=== PATIENT | female | born 1960 | race African-American/Black ===

== ENCOUNTER 2021-09-27 14:46 | Outpatient (REF) | payer MEDICAID, SELFPAY ==
[2021-09-27 15:27] LABS: Anion Gap 11 (12-20); Blood Urea Nitrogen 8 mg/dL (9-16); Carbon Dioxide 29 mmol/L (22-29); Chloride 103 mmol/L (96-108); Estimated Glomerular Filt Rate > 60; Glucose Random 82 mg/dL (60-115); Potassium 3.3 mmol/L (3.3-5.1); Sodium 140 mmol/L (135-145)
[2021-09-27 15:57] LABS: Vitamin B12 388 pg/mL (200-900)
[2021-09-28 21:25] LABS: Lyme Abs Screen <0.90 index
[2021-10-01 09:42] LABS: Treponema pallidum Ab FTA ABS Nonreactive (Nonreactive)
== END 2021-09-27 14:47 | disposition home or self-care (01) ==
LOC: HO.LAB 14:46
PROVIDERS: PCP Student in an Organized Health Care Education/Training Program; Visit Provider Psychiatry & Neurology Neurology
DX: G30.9 Alzheimer's disease, unspecified (principal)
CPT/HCPCS: 36415; 80048; 82607; 86617; 86618; 86780

== ENCOUNTER 2021-10-25 08:59 | Outpatient (REF) | payer MEDICAID, SELFPAY ==
--- NOTE | ~2021-10-25 | MR_ITS ---
EXAMINATION: MR BRAIN WITHOUT CONTRAST CLINICAL INFORMATION: Tingling of left 1st digit. Short-term memory loss. COMPARISON: None. TECHNIQUE: Multiplanar, multisequence imaging of the brain was performed without contrast. Limited study with motion artifacts. FINDINGS: No diffusion abnormalities are identified to suggest an acute infarct. No evidence of hydrocephalus. No mass effect or midline shift is seen. Scattered mild white matter signal changes may be due to chronic microangiopathy. There is moderate disproportionate volume loss in the temporal lobes, specifically involving the anteroinferior portions of the temporal lobes. No extra-axial fluid collections are seen. There is a chronic infarct in the superolateral left cerebellar hemisphere. The brainstem is normal. Incidental empty sella noted. The gradient refocused acquisition demonstrates no pathologic magnetic susceptibility artifact to indicate underlying acute or chronic blood products. The craniovertebral junction, marrow signal, and midline structures are normal. The major intracranial flow voids at the level of the [place] of [place] are preserved. The dural venous sinus flow voids are maintained. There is a [id number] amount of fluid in the dependent left mastoid air cells. Iwsv-os-muoyvsio ethmoid sinus mucosal thickening noted. MR/MR head/brain wo con IMPRESSION: Slightly limited examination with motion artifacts. No acute intracranial process. Moderate volume loss in the anteroinferior temporal lobes bilaterally. Very mild chronic white matter microangiopathy. 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
== END 2021-10-25 09:00 | disposition home or self-care (01) ==
LOC: HO.MRI 08:59
PROVIDERS: Visit Provider Psychiatry & Neurology Neurology
DX: G30.9 Alzheimer's disease, unspecified (principal)
CPT/HCPCS: 70551

== ENCOUNTER 2023-08-29 10:13 | Outpatient (REF) | payer MEDICAID, SELFPAY ==
[2023-08-29 14:52] LABS: Anion Gap 11 (12-20); Blood Urea Nitrogen 8 mg/dL (9-16); Calcium 8.1 mg/dL (8.4-10.2); Carbon Dioxide 24 mmol/L (22-29); Chloride 105 mmol/L (96-108); Estimated Glomerular Filt Rate > 60; Glucose Fasting 62 mg/dL (60-99); Potassium 3.1 mmol/L (3.3-5.1); Sodium 137 mmol/L (135-145)
== END 2023-08-29 10:14 | disposition home or self-care (01) ==
LOC: HO.CHCLDS 10:13
PROVIDERS: Visit Provider Student in an Organized Health Care Education/Training Program
DX: I10 Essential (primary) hypertension (principal)
CPT/HCPCS: 36415; 80048

== ENCOUNTER 2023-09-06 09:14 | Outpatient (REF) | payer MEDICAID, SELFPAY | END 2023-09-06 09:15 | disposition home or self-care (01) | LOC: HO.CHCLDS 09:14 | PROVIDERS: Visit Provider Student in an Organized Health Care Education/Training Program | DX: I10 Essential (primary) hypertension (principal) | CPT/HCPCS: 36415; 80048 ==

== ENCOUNTER 2024-06-28 11:54 | Outpatient (REF) | payer MEDICARE, MEDICAID, SELFPAY ==
[2024-06-28 14:39] LABS: Alanine Aminotransferase 8 U/L (0-31); Albumin Level 3.9 g/dL (3.5-5.0); Alkaline Phosphatase 84 U/L (39-117); Anion Gap 12 (12-20); Aspartate Amino Transferase 15 U/L (5-31); Bilirubin Direct 0.2 mg/dL (0.0-0.5); Bilirubin Total 0.7 mg/dL (0.0-1.0); Blood Urea Nitrogen 7 mg/dL (9-16); Calcium 8.9 mg/dL (8.4-10.2); Carbon Dioxide 29 mmol/L (22-29); Chloride 104 mmol/L (96-108); Cholesterol 185 mg/dL (<200); Estimated Glomerular Filt Rate > 60; Glucose Random 81 mg/dL (60-115); HDL Cholesterol 65 mg/dL (>40); LDL Cholesterol Calculated 95 mg/dL (<100); Sodium 142 mmol/L (135-145); Total Protein 6.9 g/dL (6.5-8.0); Triglycerides 128 mg/dL (<150)
== END 2024-06-28 11:55 | disposition home or self-care (01) ==
LOC: HO.CHCLDS 11:54
PROVIDERS: Visit Provider Student in an Organized Health Care Education/Training Program
DX: I10 Essential (primary) hypertension (principal)
CPT/HCPCS: 36415; 80048; 80061; 80076